=== PATIENT | female | born 1975 | race Caucasian/White ===

== ENCOUNTER → 2016-03-27 08:30 | Outpatient (CLI) | payer MEDICAID | END | disposition home or self-care (01) | LOC: D.US 08:30 | DX: R79.89 Other specified abnormal findings of blood chemistry (principal) ==

== ENCOUNTER 2016-04-16 19:56 | Emergency (ER) | payer MEDICAID | END 2016-04-16 21:00 | disposition left against medical advice (07) | LOC: D.ER 19:56 | DX: Z02.9 Encounter for administrative examinations, unspecified (principal) ==

== ENCOUNTER 2017-07-14 15:25 | Emergency (ER) | payer MEDICAID ==
[~2017-07-14] VITALS: Ht 160 cm; Wt 93.2 kg
[2017-07-14 15:28] VITALS: BP 116/74; Ht 160 cm; Wt 93.2 kg
== END 2017-07-14 17:32 | disposition home or self-care (01) ==
LOC: D.ER 15:25
DX: J02.9 Acute pharyngitis, unspecified (principal)

== ENCOUNTER 2019-02-13 17:02 | Emergency (ER) | payer MEDICAID ==
[~2019-02-13] VITALS: Ht 160 cm; Wt 87.3 kg
[2019-02-13 17:34] VITALS: BP 101/69; Ht 160 cm; Wt 87.3 kg
[2019-02-13] MEDS ORDERED: PROAIR HFA8.5 GM INH (18:04)
[2019-02-13] MEDS ORDERED: ADVAIR HFA [SP]12 GM INH (18:05)
[2019-02-13] MEDS ORDERED: VOLTAREN75 MG PO (18:44)
[2019-02-13] MEDS ORDERED: BACLOFEN20 M1 PO (18:44)
[2019-02-13 19:57] LABS: APPEARANCE CLEAR (CLEAR); BACTERIA MODERATE /hpf (NEGATIVE); BILIRUBIN NEGATIVE (NEGATIVE); COLOR YELLOW (YELLOW); EPITHELIAL CELLS 0-5 /hpf (0-5); GLUCOSE NEGATIVE (NEGATIVE); KETONE NEGATIVE (NEGATIVE); NITRITE NEGATIVE (NEGATIVE); PROTEIN NEGATIVE (NEGATIVE); RED CELLS - URINE OCC /hpf (0-5); SPECIFIC GRAVITY 1.015 (1.005-1.020); UROBILINOGEN NORMAL (NORMAL); WHITE CELLS - URINE 0-5 /hpf (NEGATIVE)
== END 2019-02-13 20:11 | disposition home or self-care (01) ==
LOC: D.ER 17:02
PROVIDERS: Family Medicine
DX: S39.012A Strain of muscle, fascia and tendon of lower back, initial encounter (principal); X58.XXXA Exposure to other specified factors, initial encounter; M62.830 Muscle spasm of back; J44.9 Chronic obstructive pulmonary disease, unspecified; F17.210 Nicotine dependence, cigarettes, uncomplicated